=== PATIENT | female | born 1980 | race Caucasian/White ===

== ENCOUNTER 2018-11-22 08:19 | Day surgery (SDC) | payer MEDICAID ==
[2018-11-19 16:29] LABS: BASOPHILS % (AUTO) 0.3 % (0-1); EOSINOPHILS # (AUTO) 0.3 X10'3 (0-0.9); EOSINOPHILS % (AUTO) 3.8 % (0-6); LYMPHOCYTES # (AUTO) 2.4 X10'3 (1.1-4.8); LYMPHOCYTES % (AUTO) 29.3 % (21-51); MEAN CORPUSCULAR HEMOGLOBIN 31.9 PG (27.0-31.0); MEAN CORPUSCULAR HGB CONC 32.9 g/dL (33.0-36.5); MEAN CORPUSCULAR VOLUME 96.8 FL (78-98); MEAN PLATELET VOLUME 7.3 FL (7.4-10.4); MONOCYTES # (AUTO) 0.4 X10'3 (0-0.9); MONOCYTES % (AUTO) 5.5 % (2-12); NEUTROPHILS # (AUTO) 4.9 X10'3 (1.8-7.7); NEUTROPHILS % (AUTO) 61.1 % (42-75); PRE OP HEMATOCRIT 41.1 % (35.0-45.0); PRE OP HEMOGLOBIN 13.5 g/dL (12.0-16.0); PRE OP PLATELET COUNT 318 X10'3 (140-440); RED BLOOD COUNT 4.24 X10'6 (4.20-5.60); RED CELL DISTRIBUTION WIDTH 14.3 % (11.5-14.5)
[2018-11-19 16:42] LABS: CLARITY,URINE CLEAR (Clear); COLOR,URINE STRAW (Yellow); GLUCOSE, URINE NEGATIVE (Neg); KETONES,URINE NEGATIVE (Neg); LEUKOCYTE ESTERASE ,URINE SMALL (Neg); NITRITES, URINE NEGATIVE (Neg); OCCULT BLOOD,URINE NEGATIVE (Neg); PROTEIN,URINE NEGATIVE (Neg); UROBILINOGEN,URINE 0.2 E.U/dL (0.2-1.0)
[2018-11-19 16:43] LABS: UA COLLECTION TYPE CLN CATCH MIDSTREAM
[2018-11-19 16:44] LABS: HCG SERUM QL NEGATIVE
[2018-11-19 16:54] LABS: ALBUMIN 4.5 G/DL (3.4-5.0); ALBUMIN/GLOBULIN RATIO 1.5 (1.1-1.5); ALKALINE PHOSPHATASE 57 IU/L (46-116); BLOOD UREA NITROGEN 14 MG/DL (7-18); BUN/CREATININE RATIO 18.7 (6.6-38.0); CALCIUM 9.8 MG/DL (8.5-10.1); CHLORIDE 104 MMOL/L (99-107); CREATININE 0.75 MG/DL (0.40-0.90); PRE OP ALT 38 U/L (30-65); PRE OP ANION GAP 9 (8-16); PRE OP AST 27 U/L (10-37); PRE OP BILIRUB, TOTAL 0.3 MG/DL (0.0-1.0); PRE OP GLUCOSE 91 MG/DL (70-104); PRE OP POTASSIUM 3.5 MMOL/L (3.4-5.1); PRE OP SODIUM 139 MMOL/L (135-145); TOTAL CARBON DIOXIDE 26.4 MMOL/L (24-32); TOTAL PROTEIN 7.6 G/DL (6.4-8.2); eGFR 86 ML/MIN
[2018-11-19 16:58] LABS: MUCUS STRANDS NONE SEEN /LPF (Neg); SQUAMOUS EPITHELIAL CELL,UR MODERATE /LPF (FEW); TRANSITIONAL EPI CELLS,URINE FEW /HPF
[2018-11-19 16:59] LABS: BACTERIA,URINE FEW /HPF (Neg); RBC,URINE 0-2 /HPF (0-2); WBC,URINE 0-4 /HPF (0-4)
[~2018-11-22] VITALS: Ht 162.6 cm; Wt 68.0 kg
[~2018-11-22 08:19] MED LIST: FLUT16SP2 BOTHNARES; LEVO137T24 PO; LORA10TA65 PO; cefotetan 2gm/isosm dext IVPB 50 ML IV ONE; famotidine 20mg tablet PO ONE; ringers solution, lacted 1,000 ML IV SCH
[2018-11-22] MEDS ORDERED: ringers solution, lacted 1,000 ML IV SCH (08:28)
[2018-11-22] MEDS ORDERED: fentaNYL/PF 50MCG/1 ML 2ML syringe IV PRN ×2 (08:30)
[2018-11-22] MEDS ORDERED: hydrALAZINE 20mg/ml inj. IV PRN (08:30)
[2018-11-22] MEDS ORDERED: morphine 4 MG/ML inj SYRINge IV PRN ×2 (08:30)
[2018-11-22] MEDS ORDERED: ondansetron/PF 4mg/2ml inj IV PRN (08:30)
[2018-11-22] MEDS ORDERED: labetalol 20mg/4ml (5mg/ml) syringe IV PRN (08:30)
[2018-11-22 08:35] VITALS: BP 110/67
[2018-11-22] MEDS ORDERED: BUPIVAcaine/PF 2.5 mg/ml (0.25%) 30ml vial ONE (09:05)
[2018-11-22] MEDS ORDERED: sevoflurane 250ml liquid IH ONE (11:13)
[2018-11-22] MEDS ORDERED: fentaNYL/PF 50MCG/1 ML 2ML syringe ONE (11:17)
[2018-11-22] MEDS ORDERED: midazolam 2 mg/2 ml injection ONE (11:17)
[2018-11-22] MEDS ORDERED: propofol inj 20 ML IV ONE (11:18)
[2018-11-22] MEDS ORDERED: LIDOcaine 2% (20mg/ml) 5ml vial ONE (11:18)
[2018-11-22] MEDS ORDERED: ondansetron/PF 4mg/2ml inj ONE (11:28)
[2018-11-22 11:58] VITALS: BP 125/80
--- NOTE | 2018-11-22 11:58 | NUR ---
Received from OR via [facility] , accompanied by Anesthesiologist VÍCTOR and report given by Anesthesiolgist. PATIENT WITH 20G PIV IN LEFT UE RUNNING LR AT 100. PATIENT WITH 2 LAP SITES WITH DERMABOND, DENIES PAIN, MARLEN PAD IN PLACE. VSS. Addendum: 11/22/18 at 1218 by Marlon Ya RN, RN Amended: Links added.
[2018-11-22 12:08] VITALS: BP 137/83
[2018-11-22 12:18] VITALS: BP 130/77
[2018-11-22 12:28] VITALS: BP 124/82
--- NOTE | 2018-11-22 12:38 | NUR ---
ALL DC CRITERIA HAS BEEN MET. IV TAKEN OUT WITHOUT COMPLICATIONS. ALL INSTRUCTIONS COVERED AND ALL QUESTIONS ANSWERED. DRESSINGS CDI. OUT VIA WHEELCHAIR TO PERSONAL VEHICLE WHERE PATIENT WAS SECURED IN AND DRIVEN HOME BY FAMILY. VSS, DRESSED SELF INDEPENDENTLY. DENIES PAIN. ALL QUESTIONS ANSWERED. NO NV, TAKING PO WELL. Addendum: 11/22/18 at 1254 by Marlon Ya RN, RN Amended: Links added.
== END 2018-11-22 12:38 | disposition home or self-care (01) ==
LOC: PAS 08:19
PROVIDERS: ATTEND Obstetrics & Gynecology Obstetrics
DX: Z30.2 Encounter for sterilization (principal); D64.9 Anemia, unspecified; J45.909 Unspecified asthma, uncomplicated; Z98.890 Other specified postprocedural states; Z79.899 Other long term (current) drug therapy; Z88.8 Allergy status to other drugs, medicaments and biological substances; Z82.49 Family history of ischemic heart disease and other diseases of the circulatory system; F17.210 Nicotine dependence, cigarettes, uncomplicated
CPT/HCPCS: 36415; 58671; 71046; 80053; 81001; 82948; 84443; 84703; 85025; 86885; 86900; 86901; 87088; 93005; A4264; J2001; J2250; J2405; J2704; J3010; J3490; A7000; J7120

== ENCOUNTER 2022-11-24 10:56 | Observation (INO) | payer BC ==
[2022-11-16 13:41] LABS: CLARITY,URINE CLEAR (Clear); COLOR,URINE YELLOW (Yellow); GLUCOSE, URINE NEGATIVE (Neg); KETONES,URINE NEGATIVE (Neg); LEUKOCYTE ESTERASE ,URINE NEGATIVE (Neg); NITRITES, URINE NEGATIVE (Neg); OCCULT BLOOD,URINE TRACE-INTACT (Neg); PROTEIN,URINE NEGATIVE (Neg); UROBILINOGEN,URINE 0.2 E.U/dL (0.2-1.0)
[2022-11-16 13:47] LABS: UA COLLECTION TYPE CLN CATCH MIDSTREAM
[2022-11-16 13:48] LABS: BACTERIA,URINE NONE SEEN /HPF (Neg); RBC,URINE 0-2 /HPF (0-2); SQUAMOUS EPITHELIAL CELL,UR FEW /LPF (FEW); WBC,URINE NONE SEEN /HPF (0-4)
[2022-11-16 14:36] LABS: BASOPHILS % (AUTO) 0.3 % (0-1); EOSINOPHILS # (AUTO) 0.4 X10'3 (0-0.9); EOSINOPHILS % (AUTO) 4.2 % (0-6); LYMPHOCYTES % (AUTO) 23.4 % (21-51); MEAN CORPUSCULAR HGB CONC 34.1 g/dL (33.0-36.5); MEAN CORPUSCULAR VOLUME 93.7 FL (78-98); MEAN PLATELET VOLUME 6.8 FL (7.4-10.4); MONOCYTES # (AUTO) 0.6 X10'3 (0-0.9); MONOCYTES % (AUTO) 7.3 % (2-12); NEUTROPHILS # (AUTO) 5.6 X10'3 (1.8-7.7); NEUTROPHILS % (AUTO) 64.8 % (42-75); PRE OP HEMATOCRIT 39.3 % (35.0-45.0); PRE OP HEMOGLOBIN 13.4 g/dL (12.0-16.0); PRE OP PLATELET COUNT 347 X10'3 (140-440)
[2022-11-16 14:43] LABS: HCG SERUM QL NEGATIVE
[2022-11-16 14:48] LABS: ALBUMIN/GLOBULIN RATIO 1.2 (1.1-1.5); ALKALINE PHOSPHATASE 50 IU/L (46-116); BLOOD UREA NITROGEN 17 MG/DL (7-18); BUN/CREATININE RATIO 21.5 (10.0-20.0); CHLORIDE 102 MMOL/L (99-107); CREATININE 0.79 MG/DL (0.40-0.90); PRE OP ALT 21 U/L (30-65); PRE OP ANION GAP 8 (8-16); PRE OP AST 11 U/L (10-37); PRE OP BILIRUB, TOTAL 0.3 MG/DL (0.0-1.0); PRE OP GLUCOSE 99 MG/DL (70-104); PRE OP POTASSIUM 3.5 MMOL/L (3.4-5.1); PRE OP SODIUM 138 MMOL/L (135-145); TOTAL CARBON DIOXIDE 27.7 MMOL/L (24-32); TOTAL PROTEIN 7.3 G/DL (6.4-8.2); eGFR 80 ML/MIN
[~2022-11-24] VITALS: Ht 162.6 cm; Wt 67.4 kg
[2022-11-24] VITALS (19 sets, daily range): BP systolic 95–121; BP diastolic 45–81
[~2022-11-24 10:56] MED LIST changes: -FLUT16SP2 BOTHNARES; +FURO-150 PO; +LEVO125T PO; +TOPI25TA49 PO; +ceFOXitin 2GM-NS 100mL ADDvant 100 ML IV ONE; -cefotetan 2gm/isosm dext IVPB 50 ML IV ONE
[2022-11-24] MEDS ORDERED: BUPIVAcaine/PF 2.5 mg/ml (0.25%) 30ml vial ONE (13:04)
[2022-11-24] MEDS ORDERED: clindamycin phosphate 40gm vag cream ONE (13:04)
[2022-11-24] MEDS ORDERED: vasoPRESSIN 20 units/ml inj. ONE (13:05)
[2022-11-24] MEDS ORDERED: neomy sulf/polymyxin B sulf. GU irrigation 1ml amp IR ONE (13:05)
[2022-11-24] MEDS ORDERED: sevoflurane 250ml liquid IH ONE (14:47)
[2022-11-24] MEDS ORDERED: fentaNYL /PF 50mcg/ml 5ml ampule ONE (14:49)
[2022-11-24] MEDS ORDERED: midazolam 1 mg/ML 2ml injection ONE (14:49)
[2022-11-24] MEDS ORDERED: rocuronium 10mg/ml inj IV ONE (15:01)
[2022-11-24] MEDS ORDERED: propofol inj 20 ML IV ONE (15:01)
[2022-11-24] MEDS ORDERED: dexamethasone sod phosphate 4mg/ml inj. ONE (15:30)
[2022-11-24] MEDS ORDERED: ondansetron/PF 4mg/2ml inj ONE (17:03)
[2022-11-24] MEDS ORDERED: sugammadex 200mg/2ml injection IV ONE (17:04)
[2022-11-24] MEDS ORDERED: magnesium hydroxide 30ml (MOM) UD suspension PO PRN (17:05)
[2022-11-24] MEDS ORDERED: metoclopramide 5 mg/ml inj IV PRN (17:05)
[2022-11-24] MEDS: ringers solution, lacted 1,000 ML IV SCH (17:05)
[2022-11-24] MEDS ORDERED: temazepam 15mg capsule PO PRN (17:05)
[2022-11-24] MEDS ORDERED: ondansetron/PF 4mg/2ml inj IV PRN ×2 (17:05→17:25)
[2022-11-24] MEDS ORDERED: diphenhydrAMINE 50 mg/ml inj IV PRN (17:05)
[2022-11-24] MEDS ORDERED: normal saline 500ml IV soln 500 ML IV PRN (17:05)
[2022-11-24] MEDS ORDERED: HYDROcodone/acetaminophen 10/325mg tab PO PRN (17:05)
[2022-11-24] MEDS ORDERED: LORazepam 2 mg/ml vial IV PRN (17:05)
--- NOTE | 2022-11-24 17:17 | NUR ---
Received from OR via [facility], accompanied by Anesthesiologist DR OSCAR and report given by Anesthesiologist AND AIRLINE RESERVATION AGENT. PT DROWSY, DENIES PAIN. ABDOMEN W/3 LAP SITES W/DERMABOND CDI, MARLEN PAD IN PLACE, SANTILLAN CATHETER TO GRAVITY DRAINAGE W/YELLOW URINE IN DRAINAGE BAG. Addendum: 11/24/22 at 1759 by Ana Lilia Reid RN Amended: Links added.
[2022-11-24] MEDS ORDERED: proCHLORperazine 10 MG/2 ml inj IV PRN (17:25)
[2022-11-24] MEDS ORDERED: ketorolac trometh. 30mg/ml inj. IV ONE (17:25)
[2022-11-24] MEDS ORDERED: ringers solution, lacted 1,000 ML IV SCH (17:25)
[2022-11-24] MEDS ORDERED: morphine 2 MG/ML inj. syringe IV PRN (17:25)
[2022-11-24] MEDS ORDERED: meperidine/PF 25mg/ml syringe IV PRN ×3 (17:25)
[2022-11-24] MEDS ORDERED: morphine 4 MG/ML inj SYRINge IV PRN (17:25)
[2022-11-24] MEDS: ketorolac trometh. 30mg/ml inj. IV PRN ×2 (17:41→23:19)
--- NOTE | 2022-11-24 18:30 | NUR ---
Received report from Ana Lilia in PACU but she stated they will not bring the patient on the floor until 1829.
--- NOTE | 2022-11-24 18:31 | NUR ---
Problems reprioritized. Patient report given, questions answered & plan of care reviewed with NICOLE Perez.
--- NOTE | 2022-11-24 18:47 | NUR ---
Report called to receiving nurse. Transferred via BED, NO Belongings. RECEVING RN AT BEDSIDE TO RECEIVE PT. BLL, CALL LIGHT GIVEN, SIDE RAILS UP X 2, PTS S/O ARRIVED. Special Issues communicated to receiving nurse. YES. Addendum: 11/24/22 at 1853 by Ana Lilia Reid RN Amended: Links added.
[2022-11-24] MEDS: docusate sod 100mg capsule PO SCH (19:06)
[2022-11-24] MEDS: HYDROcodone/acetaminophen 10/325mg tab PO PRN (19:07)
--- NOTE | 2022-11-24 20:00 | NUR ---
C/O PAIN INCREASED DUE TO SANTILLAN IN PLACE SO TAPE CUTTER CALLING MD TO SEE IF PT CAN HAVE F/C REMOVED. Addendum: 11/25/22 at 0029 by Carmenza Finnegan RN Amended: Links added.
--- NOTE | 2022-11-24 22:00 | NUR ---
Patient in room ORTHO 4023. I have received report from Ana RIVERA and had the opportunity to ask questions and assume patient care.
[2022-11-25] MEDS: ringers solution, lacted 1,000 ML IV SCH ×2 (01:05→09:05)
[2022-11-25] MEDS: HYDROcodone/acetaminophen 10/325mg tab PO PRN ×2 (01:37→09:54)
[2022-11-25 02:00] VITALS: BP 95/48
[2022-11-25 06:00] VITALS: BP 135/59
--- NOTE | 2022-11-25 06:23 | NUR ---
Patient in room ORTHO 4023. I have received report from BRODIE Herr and had the opportunity to ask questions and assume patient care.
--- NOTE | 2022-11-25 06:32 | NUR ---
Problems reprioritized. Patient report given, questions answered & plan of care reviewed with Becky CALLOWAY.
[2022-11-25 06:45] LABS: BASOPHILS % (AUTO) 0.1 % (0-1); EOSINOPHILS % (AUTO) 0.3 % (0-6); HEMATOCRIT 36.3 % (35.0-45.0); HEMOGLOBIN 12.1 g/dl (12.0-16.0); LYMPHOCYTES # (AUTO) 1.7 X10'3 (1.1-4.8); LYMPHOCYTES % (AUTO) 16.3 % (21-51); MEAN CORPUSCULAR HEMOGLOBIN 31.7 PG (27.0-31.0); MEAN CORPUSCULAR HGB CONC 33.4 g/dL (33.0-36.5); MEAN CORPUSCULAR VOLUME 94.8 FL (78-98); MEAN PLATELET VOLUME 7.1 FL (7.4-10.4); MONOCYTES # (AUTO) 0.7 X10'3 (0-0.9); MONOCYTES % (AUTO) 6.6 % (2-12); NEUTROPHILS # (AUTO) 8.1 X10'3 (1.8-7.7); NEUTROPHILS % (AUTO) 76.7 % (42-75); PLATELET COUNT 312 X10'3 (140-440); RED BLOOD COUNT 3.83 X10'6 (4.20-5.60); RED CELL DISTRIBUTION WIDTH 13.1 % (11.5-14.5); WHITE BLOOD COUNT 10.6 X10'3 (4.5-11.0)
[2022-11-25 07:03] LABS: ALBUMIN 3.6 G/DL (3.4-5.0); ANION GAP 9 (8-16); BLOOD UREA NITROGEN 16 MG/DL (7-18); BUN/CREATININE RATIO 19.3 (10.0-20.0); CALCIUM 8.6 MG/DL (8.5-10.1); CHLORIDE 104 MMOL/L (99-107); CREATININE 0.83 MG/DL (0.40-0.90); GLUCOSE 104 MG/DL (70-104); POTASSIUM 3.5 MMOL/L (3.5-5.1); SODIUM 139 MMOL/L (135-145); TOTAL CARBON DIOXIDE 25.9 MMOL/L (24-32); eGFR 75 ML/MIN
[2022-11-25] MEDS: docusate sod 100mg capsule PO SCH (07:13)
[2022-11-25] MEDS: ketorolac trometh. 30mg/ml inj. IV PRN ×2 (07:14→13:59)
[2022-11-25] MEDS ORDERED: enoxaparin 40mg/0.4ml syringe SQ SCH (08:00)
[2022-11-25 10:00] VITALS: BP 112/72
--- NOTE | 2022-11-25 15:10 | NUR ---
Patient was discharged at 1430 with instructions verbalizing understanding of instructions, in wheelchair accompanied by nursing staff and spouse going home via private vehicle. All lines and tubes including PIV with cannula intact have been removed. Education has been provided and all questions have been answered. Patient already has a follow up appointment with Dr. Reece. Patient is stable and appropriate for discharge.
== END 2022-11-25 14:30 | disposition home or self-care (01) ==
LOC: PAS 10:56 → ORTHO 4S 19:56
PROVIDERS: ADMIT Obstetrics & Gynecology Obstetrics; ATTEND Obstetrics & Gynecology Obstetrics
DX: N94.6 Dysmenorrhea, unspecified (principal); N85.2 Hypertrophy of uterus; N85.7 Hematometra; N93.9 Abnormal uterine and vaginal bleeding, unspecified
CPT/HCPCS: 36415; 58552; 71046; 80048; 80053; 81001; 82948; 84703; 85025; 86885; 86900; 86901; 93005; 96374; 96375; 96376; G0378; J0694; J1100; J1885; J2175; J2250; J2405; J2704; J3010; J3490; J7120; A4314; A4618; A7000